=== PATIENT | female | born 1995 | race Caucasian/White ===

== ENCOUNTER 2020-03-19 11:21 | Emergency (ER) | payer MEDICAID, OTHER ==
[~2020-03-19] VITALS: Ht 175.3 cm; Wt 69.0 kg
[2020-03-19 11:30] VITALS: BP 106/65
== END 2020-03-19 12:35 | disposition home or self-care (01) ==
LOC: ER 11:21
DX: Z48.00 Encounter for change or removal of nonsurgical wound dressing (principal)
CPT/HCPCS: 99281